=== PATIENT | male | born 1950 | race Caucasian/White ===

== ENCOUNTER 2018-09-03 06:57 | Outpatient (CLI) | payer MEDICARE ==
[~2018-09-03] VITALS: Ht 182.9 cm; Wt 104.5 kg
--- NOTE | ~2018-09-03 | HEMODYNAMI ---
PATIENT:GISSELL VILLANUEVA MEDICAL RECORD: [id number] : 46 LOCATION:[facility] ADMISSION DATE: 09/03/18 Generatedon:09/03/20189:06 Patient name: GISSELL VILLANUEVA Patient #: [id number] SSN: DO B: 1950 Date of study: 09/03/2018 Page: Of Hemodynamic Procedure Report Patient Data Patient Demographics Procedure consent was obtained First Name: GISSELL Gender: Male Last Name: RICH : 1950 Patient #: [id number] Age: 67 year(s) Race: Unknown Additional ID: [id number] Contact details Address: [address] [place] [address] [address] State: [place] City: [place] Zip code: [address] Past Medical History Allergies: No known allergies Admission Admission Data Admission Date: 09/03/2018 Admission Time: 6:57 Admit Source: Other Lab Results Lab Result Date: 09/03/2018 Lab Result Time: 7:25 Biochemistry Name Units Result Min Max BUN mg/dl 13 --(--*-)-- 7 18 Creatinine mg/dl 1.1 --(--*-)-- 0.6 1.3 CBC Name Units Result Min Max Hematocrit % 40.9 -*(----)-- 42 54 Hemoglobin g/dl 14.7 --(-*--)-- 13.5 17.5 Procedure Procedure Types Cath Procedure Diagnostic Procedure [facility] w/Coron[facility] Procedure Description Procedure Date Procedure Date: 09/03/2018 Procedure Start Time: 8:52 Procedure End Time: 9:05 Procedure Staff Name Function Greg Hayes MD Performing Physician Dougie Enriquez RT Scrub Curtis Rainey RT Monitor Daniel Ragsdale RN Nurse Procedure Data Cath Procedure Fluoroscopy Diagnostic fluoroscopy Total fluoroscopy Time: 1.5 time: 1.5 min min Diagnostic fluoroscopy Total fluoroscopy dose: 509 dose: 509 mGy mGy Contrast Material Contrast Material Type Amount (ml) Isovue 300 61 Entry Location Entry Primary Successful Side Size Upsize Upsize Entry Closure Succes sful Closure Location (Fr) 1 (Fr) 2 (Fr) Remarks Device Remarks Femoral Right 5 Fr Exoseal artery Estimated blood loss: 5 ml Diagnostic catheters Device Type Used For End Catheter Placement MULTIPACK JL 4.0 5Fr Procedure catheter MULTIPACK 3DRC 5Fr Procedure catheter MULTIPACK Pigtail 5 Fr Procedure catheter Procedure Complications No complications Procedure Medications Medication Administration Route Dosage Oxygen etCO2 Nasal cannula 2 l/min Lidocaine 2% added to field 20 Heparin Flush Bag added to field 2 bags (1000units/500ml NS) 0.9% NaCl I.V. 100 ml/hr Versed I.V. 1 mg Fentanyl I.V. 50 mcg Versed I.V. 1 mg Fentanyl I.V. 50 mcg Hemodynamics Rest HGB: 14.7 (g/dl) Heart Rate: 56 (bpm) Pressure Samples Time Site Value (mmHg) Purpose Heart Use Rate(bpm) 8:58 LV 102/23,31 Snapshot 55 8:59 AO 106/73(88) Pullback 55 8:59 LV 86/5,7 Pullback 55 Gradients Valve Time Site 1 Site 2 Mean SEP/DFP Peak To Heart Use (mmHg) (sec/min) Peak Rate (mmHg) (bpm) Aortic 8:59 LV AO 0 2 0 55 86/5,7 106/73(88) Calculations Valve P-P Mean Valve Index Valve Source Name Gradient Area Flow (cm2) Aortic 0 0 0 0 Snapshots Pre Cath Intra NCS Post Cath Vital Signs Time Heart Resp SPO2 etCO2 NIBP (mmHg) Rhythm Pain Sedation Rate (ipm) (%) (mmHg) Status Level (bpm) 8:35:48 57 19 97 0 165/90(127) NSR 0 (11) 10(A) , No pain 8:40:08 58 21 100 34.4 162/94(123) NSR 0 (11) 10(A) , No pain 8:44:24 56 15 96 44.2 133/79(119) NSR 0 (11) 10(A) , No pain 8:48:38 56 15 95 18.7 138/74(107) NSR 0 (11) 9(A) , No pain 8:52:55 54 15 98 0 133/76(94) NSR 0 (11) 9(A) , No pain 8:57:08 55 16 99 0 121/74(91) NSR 0 (11) 9(A) , No pain 9:02:07 56 13 96 23.2 125/61(102) NSR 0 (11) 10(A) , No pain Medications Time Medication Route Dose Verified Delivered Reason Notes Effec tiveness by by 8:41:31 Oxygen etCO2 2 Greg Buffie used for Nasal l/min Freddy Ragsdale RN procedure cannula 8:41:38 Lidocaine 2% added 20ml Greg Greg used for to vial Freddy Hayes MD procedure field 8:41:45 Heparin Flush added 2 Greg Greg used for Bag to bags Freddy Hayes MD procedure (1000units/500ml field NS) 8:41:58 0.9% NaCl I.V. 100 Greg Buffie Per ml/hr Freddy Ragsdale RN physician 8:46:03 Versed I.V. 1 mg Greg Buffie for Freddy Ragsdale RN sedation 8:46:09 Fentanyl I.V. 50 Greg Buffie for mcg Freddy Ragsdale RN sedation 8:52:49 Versed I.V. 1 mg Greg Buffie for Freddy Ragsdale RN sedation 8:52:53 Fentanyl I.V. 50 Greg Buffie for mcg Freddy Ragsdale RN sedation Procedure Log Time Note 7:49:52 Informed consent obtained and on chart 7:49:55 Admit Source: Other 7:50:26 Diagnostic Cath status Elective 7:50:28 Time tracking: Regular hours (M-F 7:00 - 5:00) 7:50:34 Plan of Care:Hemodynamics will remain stable., Cardiac rhythm will remain stable., Comfort level will be maintained., Respiratory function will remain adequate., Patient/ family verbilizes understanding of procedure., Procedure tolerated without complication., Recovers from procedure without complications.. 8:15:53 Daniel Ragsdale RN sent for patient. Start room use. 8:28:31 Patient received from Pre/Post Procedure Room to CCL 2 Alert and oriented. Tansferred to table in Supine position. 8:28:32 Warm blankets applied, and ariela hugger turned on for patient comfort. 8:28:32 Correct patient and procedure confirmed by team. 8:28:33 ECG and BP/O2 sat monitors applied to patient. 8:28:34 Pre-procedure instructions explained to patient. 8:28:34 Pre-op teaching completed and patient verbalized understanding. 8:28:35 Family in waiting room. 8:28:36 Patient NPO since Midnight. 8:28:46 Patient allergic to No known allergies 8:28:55 H&P Date Dictated: 08/10/2018 Within 30 days and on chart., H&P Addendum completed by physician on day of procedure. (MUST COMPLETE FOR ALL OUTPATIENTS). 8:34:39 Vital chart was started 8:41:31 Oxygen 2 l/min etCO2 Nasal cannula was administered by Danile Ragsdale RN; used for procedure; 8:41:38 Lidocaine 2% 20ml vial added to field was administered by Greg Hayes MD; used for procedure; 8:41:45 Heparin Flush Bag (1000units/500ml NS) 2 bags added to field was administered by Greg Hayes MD; used for procedure; 8:41:58 0.9% NaCl 100 ml/hr I.V. was administered by Daniel Ragsdale RN; Per physician; 8:42:42 Baseline sample Acquired. 8:42:45 Rhythm: sinus rhythm 8:42:46 Full Disclosure recording started 8:42:49 Is the patient allergic to Iodine/contrast media? No. 8:42:51 Is patient on blood thinner?No 8:42:52 Patient diabetic? No. 8:42:54 Previous problem with sedation/anesthesia? No ? 8:42:55 Snore? Yes 8:42:56 Sleep apnea? No 8:42:57 Deviated septum? No 8:42:58 Opens mouth fully? Yes 8:42:58 Sticks out tongue? Yes 8:42:59 Airway obstruction? No ? 8:43:02 Dentures? No ? 8:43:04 Pre procedure: right dorsailis pedis pulse 2+ Normal; easily identifiable; not easily obliterated 8:43:06 Patient pain scale 0/10 ?. 8:43:11 IV patent on arrival in left hand with 0.9% NaCl at [facility]. 8:43:45 Lab Result : BUN 13 mg/dl 8:43:45 Lab Result : Hemoglobin 14.7 g/dl 8:43:45 Lab Result : Creatinine 1.1 mg/dl 8:43:45 Lab Result : Hematocrit 40.9 % 8:43:48 Lab results completed and on chart. 8:43:50 Right groin area was prepped with chlora-prep and draped in sterile fashion 8:43:51 Alarms reviewed by R. N. 8:43:51 Sharps counted by scrub and verified by R.N. 8:43:53 Use device set Femoral Dx 8:43:54 ACIST Syringe (15596) opened to sterile field. 8:43:55 Bag Decanter (2002S) opened to sterile field. 8:43:55 Medline Cath Pack ([id number]) opened to sterile field. 8:43:57 ACIST Hand Control (57245) opened to sterile field. 8:43:57 ACIST Manifold (97263) opened to sterile field. 8:43:58 Tegaderm 4 x 4 (1626W) opened to sterile field. 8:44:00 SHEATH Prelude 5Fr 0.035 ([id number]) opened to sterile field. 8:44:01 DIAGNOSTIC WIRE .035 260cm J wire ([id number]) opened to sterile field. 8:44:02 DIAGNOSTIC Multipack 5Fr catheter set ([id number]) opened to sterile field. 8:44:11 Physician arrived 8:44:15 --------ALL STOP TIME OUT------ 8:44:15 Final Timeout: patient, procedure, and site verified with staff and physician. All members of the team are in agreement. 8:44:17 Right groin site verified by team. 8:44:20 Physical assessment completed. ASA score P 2 - A patient with mild systemic disease as per Greg Hayes MD. 8:44:22 Sedation plan: IV Moderate Sedation Medication:Versed, Fentanyl 8:46:03 Versed 1 mg I.V. was administered by Daniel Ragsdale RN; for sedation; 8:46:09 Fentanyl 50 mcg I.V. was administered by Daniel Ragsdale RN; for sedation; 8:52:19 Zero performed for pressure channel P1 8:52:28 Procedure started. 8:52:31 Local anesthetic to right femoral artery with Lidocaine 2% by Greg Hayes MD.INITIAL ACCESS ONLY 8:52:49 Versed 1 mg I.V. was administered by Daniel Ragsdale RN; for sedation; 8:52:53 Fentanyl 50 mcg I.V. was administered by Daniel Ragsdale RN; for sedation; 8:54:42 A 5 Fr sheath was inserted into the Right Femoral artery 8:54:46 A MULTIPACK JL 4.0 5Fr catheter was advanced over the wire and used for Procedure. 8:54:57 LCA angiography performed. 8:56:27 Catheter exchanged over wire. 8:56:32 A MULTIPACK 3DRC 5Fr catheter was advanced over the wire and used for Procedure. 8:56:50 RCA angiography performed. 8:57:18 Catheter exchanged over wire. 8:57:21 A MULTIPACK Pigtail 5 Fr catheter was advanced over the wire and used for Procedure. 8:58:48 LV gram done using PAZ 8:58:50 Injector settings: Ml/sec: 10, Volume: 20, 8:58:51 LV hemodynamics recorded. 8:58:55 EF : 55 % 9:00:14 Catheter removed. 9:00:17 EXOSEAL 5Fr (EX500) opened to sterile field. 9:00:24 Sheath removed intact; hemostasis achieved with Exoseal to the Right Femoral artery. 9:00:27 Procedure ended.(Physican Out) 9:01:30 Fluoroscopy time 01.50 minutes. 9:01:36 Fluoroscopy dose: 509 mGy 9:01:36 Flurop Dose total: 509 9:01:45 Contrast amount:Isovue 300 61ml. 9:01:50 Sharps counted by scrub and verified by R.N. 9:01:52 Insertion/operative site no bleeding no hematoma. 9:01:56 Post-op/insertion site Right Femoral artery dressed using a 4 x 4 and Tegaderm. 9:02:00 Post right femoral artery:stable, soft, clean and dry 9:02:01 Post Procedure Pulses reassessed and unchanged 9:02:05 Post-procedure physical assessment completed. ASA score P 2 - A patient with mild systemic disease as per Greg Hayes MD. 9:02:07 Post procedure rhythm: unchanged. 9:03:44 Estimated blood loss: 5 ml 9:03:46 Post procedure instruction explained to patient.Patient verbalizes understanding. 9:03:46 Patient needs reinforcement of post procedure teaching. 9:05:35 Procedure and supply charges have been captured, reviewed, submitted and are correct. 9:05:37 Procedure Complication : No complications 9:05:39 Vital chart was stopped 9:05:39 See physician's report for complete and final results. 9:05:40 Report given to Pre/Post Procedure Room. 9:05:42 Patient transfered to Pre/Post Procedure Room with Stretcher. 9:05:44 Procedure ended. 9:05:44 Full Disclosure recording stopped 9:05:50 End room use (Document Last) Device Usage Item Name Manufacture Quantity Catalog Number Hospital Part Current M inimal Lot# / Charge Number Stock Stock Serial# Code ACIST Syringe Acist 1 [id number] 182611 063008 403740 2 0 (77576) [employer] Bag Decanter Microtek 1 2001S 642377 70740 035561 5 (2001S) [employer] Medline Cath Medline 1 [id number] 641670 50548 352976 5 Pack ([id number]) ACIST Hand Acist 1 75919 747487 567783 184046 5 Control (29516) [employer] ACIST Manifold Acist 1 37271 586912 165317 919840 5 (32290) [employer] Tegaderm 4 x 4 3M 1 1626W 448851 664302 777128 5 (1626W) SHEATH Prelude Merit 1 [id number] 429905 171129 208757 5 5Fr 0.035 Medical ([id number]-[id number]-64-035) DIAGNOSTIC WIRE St Oscar 1 657981 039510 451550 345645 3 0 .035 260cm J wire (978612) DIAGNOSTIC Cardinal 1 [id number] 408168 81857 681072 3 0 Multipack 5Fr Health catheter set (DX9344) MULTIPACK JL Cardinal 1 958671 5 4.0 5Fr Health catheter MULTIPACK 3DRC Cardinal 1 [id number] 5 5Fr catheter Health MULTIPACK Cardinal 1 [id number] 5 Pigtail 5 Fr Health catheter EXOSEAL 5Fr Cardinal 1 EX500 157781 126287 116666 1 0 (EX500) Health Signature Audit [place] Stage Time Signature Unsigned Intra-Procedure 09/03/2018 Curtis Rainey 9:06:19 AM RT(R) Signatures Monitor : Curtis Rainey RT Signature : Date : Time : [facility] [address] [place] [address]
[2018-09-03] MEDS ORDERED: ZESTRIL40 MG PO (07:20)
[2018-09-03] MEDS ORDERED: CELEXA40 MG PO (07:20)
[2018-09-03] MEDS ORDERED: AMBIEN10 MG PO (07:21)
[2018-09-03] MEDS ORDERED: METOPROLOL TART50 MG PO (07:21)
[2018-09-03 07:29] VITALS: BP 164/101; Ht 182.9 cm; Wt 104.5 kg
[2018-09-03 07:35] LABS: BASOPHILS 0.4 % (0-2); HEMATOCRIT 40.9 % (42.0-54.0); HEMOGLOBIN 14.7 g/dL (13.5-17.5); IMMATURE GRANULOCYTES 1.1 % (0-5); LYMPHOCYTES 33.3 % (15-50); MCH 35.3 pg (26.0-34.0); MCHC 35.9 g/dL (31.0-37.0); MCV 98.1 fL (80.0-100.0); MEAN PLATELET VOLUME 10.6 fL (7.4-10.4); MONOCYTES 8.8 % (2-11); NEUTROPHILS 54.4 % (40-80); PLATELET COUNT 132 10x3/uL (130-400); RBC 4.17 10x6/uL (4.20-6.10); RDW 12.2 % (11.5-14.5); WBC 5.6 10x3/uL (4.8-10.8)
[2018-09-03 08:02] LABS: ANION GAP 14.7 mmol/L (8-16); CALCIUM 8.7 mg/dL (8.5-10.1); CARBON DIOXIDE 26.5 mmol/L (21.0-32.0); CREATININE - SERUM 1.1 mg/dL (0.6-1.3); POTASSIUM - SERUM 4.2 mmol/L (3.5-5.1)
== END 2018-09-03 12:15 | disposition home or self-care (01) ==
LOC: D.CATH 06:57
PROVIDERS: Internal Medicine Cardiovascular Disease
DX: R94.39 Abnormal result of other cardiovascular function study (principal); I25.110 Atherosclerotic heart disease of native coronary artery with unstable angina pectoris; R06.02 Shortness of breath